=== PATIENT | female | born 2000 | race Caucasian/White ===

== ENCOUNTER 2020-04-11 11:04 | Emergency (ER) | payer OTHER ==
[~2020-04-11] VITALS: Ht 165.1 cm; Wt 45.4 kg
[2020-04-11] MEDS ORDERED: CYCLOBENZAPRINE5 MG PO (12:56)
[2020-04-11] MEDS ORDERED: NAPROSYN500 M1 PO (12:56)
[2020-04-11 13:06] VITALS: BP 124/82
== END 2020-04-11 13:07 | disposition home or self-care (01) ==
LOC: M.ERS 11:04
DX: M62.838 Other muscle spasm (principal); M25.512 Pain in left shoulder; M25.511 Pain in right shoulder